=== PATIENT | male | born 1975 | race Caucasian/White ===

== ENCOUNTER 2024-05-06 13:00 | Emergency (ER) | payer OTHER, SELFPAY ==
[2024-05-06 13:03] VITALS: BP 147/93
--- NOTE | 2024-05-06 14:07 | ED.GENMED ---
History of Present Illness
General
Chief Complaint: Musculo-Skeletal Complaint
Time Seen by Provider: 05/06/24 13:47
History of Present Illness
History of Present Illness:
48-year-old male presents to the emergency department for evaluation of nontraumatic left knee swelling developing over the past day. He notes a clicking sensation whenever ambulating. Denies any recent falls or injuries otherwise. No fevers or
chills. Denies any recent tick bites
Past History
Past History
ED Past Medical History: None
ED Past Surgical History: None
Social History
Tobacco: Non-smoker
Alcohol: None
Drug: None
Living: with family
Review of Systems
Review of Systems
Allergies reviewed?: Yes
All Other Systems: ROS reviewed and negative except as documented in HPI and ROS
Phy Exam
Physical Exam
Physical Exam:
GEN: Well appearing, NAD, WDWN
HEENT: Oral mucosa moist, no scleral icterus
Cardiac: Regular rate
Lung: No respiratory distress, no tachypnea
MSK: Moderate left knee effusion with no erythema. Mild discomfort with passive range of motion, no crepitus
Skin: Good color, no pallor or jaundice, no rashes
Neuro: AO x3, moves all extremities freely
Psych: Calm, cooperative
Course
Orders/Labs/Results
Orders:
Orders
05/06/24 13:05
Knee, Left 4 or More Views [CR Knee - Left 4 Or More View*] Urgent
Comment:
Reason For Exam: pain and swelling
05/06/24 14:09
Body Fluid Cell Count Urgent
What is the Body Fluid: joint
Date Specimen was Collected: 05/06/24
Time Specimen was Collected: 14:08
Comment: with DIFF
Body Fluid Crystals Urgent
What is the Body Fluid: joint
Date Specimen was Collected: 05/06/24
Time Specimen was Collected: 14:08
Fluid Culture with Gram Stain Urgent
EYAD Source: Joint Fluid
Specimen Description:
Date Specimen was Collected: 05/06/24
Time Specimen was Collected: 14:08
Vital Signs
Initial and Last Documented VS:
Initial Vital Signs
Temp Pulse Resp BP Pulse Ox
98.4 F 74 18 147/93 98
05/06/24 13:03 05/06/24 13:03 05/06/24 13:03 05/06/24 13:03 05/06/24 13:03
Last Documented Vital Signs
Temp Pulse Resp BP Pulse Ox
98.4 F 74 18 135/75 98
05/06/24 13:03 05/06/24 13:03 05/06/24 13:03 05/06/24 14:19 05/06/24 14:19
Procedures
Incision/Drainage/Joint Aspiration
Left Knee:
Preparation: cleaned with Hibiclens
Type of procedure: aspiration
Nature of site: other (Joint aspiration)
How much fluid was obtained?: number in mls (35cc)
Fluid description: straw colored
Treatment: bandaid applied
MDM/Problems Addressed
MDM/Problems Addressed:
Benefits and risks of arthrocentesis discussed with the patient, although I do not suspect septic arthritis, gouty arthritis, Lyme arthritis, versus osteoarthritis are in the differential. Fluid aspirate was quite clear thus the patient was
discharged home awaiting test results. Likely osteoarthritis with acute joint inflammation, recommend NSAIDs and outpatient orthopedic follow-up. X-ray is unremarkable
*Critical Care Note
Total Time (30-74mins, 75-104mins- exclusive of procedures): Not Applicable
ED Attending Note
-
Portions of this chart may have been created with voice recognition software.� Occasional wrong word or��sound alike� substitutions may have occurred due to the inherent limitations of voice recognition software.
Discharge Plan
Departure
Patient Disposition: Home (Routine Discharge)
Date of Disposition: 05/06/24
Time of Disposition: 14:08
Patient with high blood pressure during this ER visit?: No
Discharge Problem:
Effusion of left knee
Instructions: Swollen Joints (DC)
Prescriptions:
No Action
esomeprazole magnesium [Nexium] 40 mg Capsule,Delayed Release(Dr/Ec)
40 mg PO DAILY
Referrals:
Ele Olmos I., [Active] -
James Lowery MD [Family Provider] -
Activity Restrictions/Additional Instructions:
Ibuprofen 600mg every 8 hours for pain
Keep knee elevated
Return to the ER if you develop redness/pain around the site of drainage
If there are any concerning findings on your knee fluid, I will call you today
Interventions
Interventions:
*Risk Screen - Suicide Last Done: 05/06/24 13:03
*General Assessment Last Done: 05/06/24 13:03
*Neglect/Abuse Screening Last Done: 05/06/24 13:03
ED- Fall Risk Assessment Last Done: 05/06/24 14:19
*ED COVID-19 Vaccine History Last Done: 05/06/24 14:19
*Nursing Disposition Last Done: 05/06/24 14:19
ED-Musculoskeletal Assessment Last Done: 05/06/24 13:52
Discharge Date and Time
Discharge Date/Time: 05/06/24 14:19
Print Language: KOREAN
[2024-05-06 14:19] VITALS: BP 135/75
[2024-05-06 14:27] LABS: Body Fluid Mononuclear 88.2 %; Body Fluid Polymorphonuclear 11.8 %; Body Fluid WBC 128 /CUMM
[2024-05-06 14:36] LABS: Body Fluid Second Tech SS
== END 2024-05-06 14:19 | disposition home or self-care (01) ==
LOC: EMR 13:00
PROVIDERS: Physician Assistant; EMERGENCY PHYSICIAN Emergency Medicine; FAMILY PHYSICIAN Family Medicine
DX: M25.462 Effusion, left knee (principal); M25.562 Pain in left knee
CPT/HCPCS: 20610; 99283; 73564; 87015; 87070; 87205; 89051; 89060

== ENCOUNTER → 2024-06-02 07:31 | Outpatient (REF) | payer OTHER, SELFPAY | LOC: MRI 07:31 | PROVIDERS: ATTENDING PHYSICIAN Student in an Organized Health Care Education/Training Program; FAMILY PHYSICIAN Family Medicine | DX: M25.562 Pain in left knee (principal); S05.50XA Penetrating wound with foreign body of unspecified eyeball, initial encounter | CPT/HCPCS: 70030; 73721 ==

== ENCOUNTER 2024-07-12 06:15 | Day surgery (SDC) | payer OTHER, SELFPAY ==
[2024-07-12] VITALS (9 sets, daily range): BP systolic 135–155; BP diastolic 83–104; BMI 32.2
[2024-07-12] MEDS: TYLENOL 1000 MG PO (13:54)
--- NOTE | 2024-07-12 19:20 | W.IMMPOSTOP ---
Surgical Immed Post Op Note
-
Primary Surgeon: Deion Blake MD
Assisting Surgeon:
Pre-op Diagnosis: left knee medial meniscal tear
Post-op Diagnosis: left knee medial meniscal tear
Procedure Performed: left knee arthroscopic partial medial meniscectomy
Anesthesia Type: general
Specimen / Cultures: none
Estimated Blood Loss: 2mL
Complications: none apparent
Tourniquet time: 23 minutes
Operative Findings: oblique medial meniscal tear; grade 1 chondral changes to the trochlea and medial femoral condyle
Operative dictation #: [id number]
[2024-07-12] MEDS: DEMEROL 12.5 MG IV (19:37)
[2024-07-12] MEDS: ROXICODONE 5 MG PO (20:00)
== END 2024-07-12 20:26 | disposition home or self-care (01) ==
LOC: SDS 06:15
PROVIDERS: ATTENDING PHYSICIAN Student in an Organized Health Care Education/Training Program
DX: S83.242A Other tear of medial meniscus, current injury, left knee, initial encounter (principal); X58.XXXA Exposure to other specified factors, initial encounter
CPT/HCPCS: 29881

== ENCOUNTER 2024-08-01 08:59 | Outpatient (RCR) | payer OTHER, SELFPAY | END 2024-08-01 23:59 | disposition home or self-care (01) | LOC: RPT 08:59 | PROVIDERS: ATTENDING PHYSICIAN Student in an Organized Health Care Education/Training Program; FAMILY PHYSICIAN Family Medicine | DX: Z47.89 Encounter for other orthopedic aftercare (principal); Z73.6 Limitation of activities due to disability; M25.662 Stiffness of left knee, not elsewhere classified; M25.562 Pain in left knee; R26.89 Other abnormalities of gait and mobility | CPT/HCPCS: 97010; 97110; 97116; 97140; 97161 ==

== ENCOUNTER 2024-08-29 08:59 | Outpatient (RCR) | payer OTHER, SELFPAY | END 2024-08-29 12:43 | disposition home or self-care (01) | LOC: RPT 08:59 | PROVIDERS: ATTENDING PHYSICIAN Student in an Organized Health Care Education/Training Program; FAMILY PHYSICIAN Family Medicine | DX: Z47.89 Encounter for other orthopedic aftercare (principal); Z73.6 Limitation of activities due to disability; M25.662 Stiffness of left knee, not elsewhere classified; M25.562 Pain in left knee; R26.89 Other abnormalities of gait and mobility | CPT/HCPCS: 97110; 97112; 97140; 97530 ==